=== PATIENT | female | born 1980 | race Asian ===

== ENCOUNTER 2021-09-06 12:35 | Emergency (ER) | payer MEDICAID ==
[~2021-09-06] VITALS: Ht 157.5 cm; Wt 75.0 kg
[2021-09-06] MEDS ORDERED: KETOROLAC 60MG/2ML VIAL IM STA (13:52)
[2021-09-06] MEDS ORDERED: NAPR-681 PO (16:08)
[2021-09-06] MEDS ORDERED: OMEP20CA14 PO (16:08)
[2021-09-06 16:20] VITALS: BP 113/75
== END 2021-09-06 16:30 | disposition home or self-care (01) ==
LOC: ER 12:35
DX: M25.512 Pain in left shoulder (principal); M54.9 Dorsalgia, unspecified
CPT/HCPCS: 71045; 73030; 81025; 96372; 99284; J1885

== ENCOUNTER 2024-09-06 08:14 | Emergency (ER) | payer MEDICAID, OTHER ==
[~2024-09-06] VITALS: Ht 162.6 cm; Wt 91.0 kg
[~2024-09-06 08:14] MED LIST: NAPR-681 PO; OMEP20CA14 PO
[2024-09-06 08:25] VITALS: O2SAT 66
[2024-09-06 08:46] LABS: BASOPHILS % 0.4 % (0.0-2.0); EOSINOPHILS % 0.6 % (0.0-5.0); HEMATOCRIT. 38.5 % (36.0-48.0); HEMOGLOBIN. 13.2 g/dL (12.0-16.0); LYMPHOCYTES % 40.9 % (20.0-50.0); MEAN CORPUSCULAR HEMOGLOBIN 31.9 pg (28.0-32.0); MEAN CORPUSCULAR HGB CONC 34.3 g/dL (31.0-37.0); MEAN CORPUSCULAR VOLUME 92.9 fL (81.0-99.0); MEAN PLATELET VOLUME 8.4 fl (7.4-10.4); MONOCYTES % 8.8 % (2.0-8.0); NEUTROPHILS % 49.3 % (40.0-76.0); PLATELET 282 x1000/uL (130-400); RED BLOOD CELL COUNT 4.15 mill/uL (4.2-5.4); RED CELL DISTRIBUTION WIDTH 13.4 % (11.6-14.6); WHITE BLOOD COUNT 8.7 x1000/uL (4.5-11.0)
[2024-09-06 08:58] LABS: CHLORIDE 104 mEq/L (98-107); POTASSIUM 3.8 mEq/L (3.5-5.1); SODIUM 139 mEq/L (136-145)
[2024-09-06 08:59] LABS: CARBON DIOXIDE 25 mEq/L (21-32)
[2024-09-06 09:00] LABS: CALCIUM 9.8 mg/dL (8.7-10.4)
[2024-09-06 09:04] LABS: CREATININE 0.9 mg/dL (0.6-1.0); GLUCOSE 114 mg/dL (70-105)
[2024-09-06 09:05] LABS: UREA NITROGEN BLOOD 16 mg/dL (9-23)
[2024-09-06 09:06] LABS: ALANINE AMINOTRANSFERASE 108 IU/L (10-49); ALBUMIN 4.5 g/dL (3.2-4.8); ASPARTATE AMINOTRANSFERASE 62 IU/L (<34)
[2024-09-06 09:07] LABS: BILIRUBIN DIRECT 0.1 mg/dL (<=3.0); BILIRUBIN TOTAL 0.5 mg/dL (0.1-1.0); PROTEIN TOTAL 7.8 g/dL (6.0-8.3)
[2024-09-06 10:44] LABS: CLARITY URINE CLEAR (CLEAR); COLOR URINE YELLOW (YELLOW); GLUCOSE URINE NEGATIVE (NEGATIVE); KETONES URINE NEGATIVE (NEGATIVE); LEUKOCYTE ESTERASE URINE NEGATIVE (NEGATIVE); NITRITE URINE NEGATIVE (NEGATIVE); OCCULT BLOOD URINE NEGATIVE (NEGATIVE); PH URINE 6.5 (4.5-8.0); PROTEIN URINE NEGATIVE (NEGATIVE); SPECIFIC GRAVITY URINE 1.014 (1.005-1.030); UROBILINOGEN URINE 0.2 E.U./dL (0.2-1.0)
[2024-09-06 12:21] VITALS: BP 126/81; PULSE 88; RESP 18; TEMP 36.78072; O2SAT 98
== END 2024-09-06 12:23 | disposition home or self-care (01) ==
LOC: ER 08:14
DX: K59.00 Constipation, unspecified (principal); Z90.49 Acquired absence of other specified parts of digestive tract; Z98.890 Other specified postprocedural states
CPT/HCPCS: 36415; 80048; 80076; 81003; 85025; 99283

== ENCOUNTER 2025-04-12 21:26 | Emergency (ER) | payer OTHER ==
[~2025-04-12] VITALS: Ht 167.6 cm; Wt 80.0 kg
[2025-04-12] MEDS: KETOROLAC 15MG/ML VIAL IM ONE (00:13)
[2025-04-12 22:03] VITALS: O2SAT 98
[2025-04-13] MEDS ORDERED: AMOX1TAB16 MT (00:01)
[2025-04-13] MEDS ORDERED: NAPR-1176 MT (00:01)
[2025-04-13 00:10] VITALS: BP 129/66; PULSE 81; RESP 16; TEMP 37.1; O2SAT 98
== END 2025-04-13 00:17 | disposition home or self-care (01) ==
LOC: ER 21:51
DX: K04.7 Periapical abscess without sinus (principal); Z90.49 Acquired absence of other specified parts of digestive tract
CPT/HCPCS: 99283; 81025; 96372; J1885